=== PATIENT | female | born 1990 | race Two or more races ===

== ENCOUNTER 2017-01-27 13:20 | Emergency (ER) | payer SELFPAY ==
[2017-01-27] MEDS ORDERED: Alum Hydrox/Mag Hydrox/Simeth 15 ML, Lidocaine 2% 5 ML PO ONE ×2 (13:32)
[2017-01-27] MEDS ORDERED: Sodium Chloride 0.9% 1,000 ML IV ONE (13:32)
[2017-01-27] MEDS ORDERED: Ondansetron 4 MG/2 ML SDV IVPUSH ONE (13:32)
[2017-01-27] MEDS ORDERED: Sodium Chloride 0.9% 10 ML Syringe FLUSH PRN (13:32)
[2017-01-27] MEDS ORDERED: Sodium Chloride 0.9% 2.5 ML Syringe FLUSH PRN (13:32)
[2017-01-27] MEDS ORDERED: Ketorolac 30 MG/ML SDV IVPUSH ONE (13:32)
--- NOTE | 2017-01-27 13:36 | EDM.PDOC ---
ED HPI GENERAL MEDICAL PROBLEM - General Chief Complaint: Abdominal Pain Stated Complaint: ABDOMINAL PAIN Time Seen by Provider: 01/27/17 13:30 - History of Present Illness INITIAL COMMENTS - FREE TEXT/NARRATIVE: HISTORY AND PHYSICAL: History of present illness: Patient 26-year-old white female presenting concern of abdominal pain is epigastric and upper abdominal discomfort 3 days she states her is a postprandial component she denies history of ulcer denies melena hematochezia denies denies fever chills shortness of breath or chest pain Review of systems: As per history of present illness and below otherwise all systems reviewed and negative. Past medical history: As per history of present illness and as reviewed below otherwise noncontributory. Surgical history: As per history of present illness and as reviewed below otherwise noncontributory. Social history: No reported history of drug or alcohol abuse. Family history: As per history of present illness and as reviewed below otherwise noncontributory. Physical exam: HEENT: Atraumatic, normocephalic, pupils reactive, negative for conjunctival pallor or scleral icterus, mucous membranes moist, throat clear, neck supple, nontender, trachea midline. Lungs: Clear to auscultation, breath sounds equal bilaterally, chest nontender. Heart: S1S2, regular, negative for clicks, rubs, or JVD. Abdomen: Soft, nondistended, tenderness in the epigastrium and right upper quadrant with deep palpation no rebound no guarding. Negative for masses or hepatosplenomegaly. Negative for costovertebral tenderness. Pelvis: Stable nontender. Genitourinary: Deferred. Rectal: Deferred. Extremities: Atraumatic, negative for cords or calf pain. Neurovascular unremarkable. Neuro: Awake, alert, oriented. Cranial nerves II through XII unremarkable. Cerebellum unremarkable. Motor and sensory unremarkable throughout. Exam nonfocal. Diagnostics: CBC CMP amylase lipase UA hCG right upper quadrant ultrasound Therapeutics: Normal saline 1 L bolus Toradol 30 mg IV Zofran 4 mg IV GI cocktail Impression: #1 upper abdominal pain Definitive disposition and diagnosis as appropriate pending reevaluation and review of above. - Related Data Allergies Allergy/AdvReac Type Severity Reaction Status Date / Time No Known Allergies Allergy Verified 01/27/17 13:29 Home Meds: Home Meds . [No Known Home Meds] 01/27/17 [History] ED ROS GENERAL - Review of Systems Review Of Systems: ROS reveals no pertinent complaints other than HPI. ED EXAM, GENERAL - Physical Exam Exam: See Below (See dictation) Course - Vital Signs Last Recorded V/S: Last Vital Signs Temp 36.3 C 01/27/17 13:30 Pulse 84 01/27/17 13:30 Resp 20 01/27/17 13:30 BP 131/66 01/27/17 13:30 Pulse Ox 98 01/27/17 13:30 - Orders/Labs/Meds Orders: Active Orders 24 hr Category Date Time Status Sodium Chloride 0.9% [Saline Flush] Med 01/27/17 13:32 Active 10 ml FLUSH ASDIRECTED PRN Sodium Chloride 0.9% [Saline Flush] Med 01/27/17 13:32 Active 2.5 ml FLUSH ASDIRECTED PRN Saline Lock Insert [OM.PC] Stat Oth 01/27/17 13:32 Ordered Medication Orders Sodium Chloride (Saline Flush) 10 ml FLUSH ASDIRECTED PRN PRN Reason: Keep Vein Open Sodium Chloride (Saline Flush) 2.5 ml FLUSH ASDIRECTED PRN PRN Reason: Keep Vein Open Labs: Laboratory Tests 01/27/17 01/27/17 01/27/17 Range/Units 14:02 14:02 14:02 WBC 10.32 (4.0-11.0) K/uL RBC 4.65 (4.30-5.90) M/uL Hgb 13.7 (12.0-16.0) g/dL Hct 40.7 (36.0-46.0) % MCV 87.5 (80.0-98.0) fL MCH 29.5 (27.0-32.0) pg MCHC 33.7 (31.0-37.0) g/dL RDW Std Deviation 42.2 (28.0-62.0) fl RDW Coeff of Stephanie 13 (11.0-15.0) % Plt Count 367 (150-400) K/uL MPV 11.40 (7.40-12.00) fL Neut % (Auto) 67.6 (48.0-80.0) % Lymph % (Auto) 23.2 (16.0-40.0) % [place] % (Auto) 7.6 (0.0-15.0) % Eos % (Auto) 1.1 (0.0-7.0) % Baso % (Auto) 0.5 (0.0-1.5) % Neut # (Auto) 7.0 H (1.4-5.7) K/uL Lymph # (Auto) 2.4 (0.6-2.4) K/uL [place] # (Auto) 0.8 (0.0-0.8) K/uL Eos # (Auto) 0.1 (0.0-0.7) K/uL Baso # (Auto) 0.1 (0.0-0.1) K/uL Nucleated RBC % 0.0 /100WBC Nucleated RBCs # 0 K/uL INR 0.95 (0.86-1.11) Sodium 139 (136-146) mmol/L Potassium 4.0 (3.5-5.1) mmol/L Chloride 106 (98-110) mmol/L Carbon Dioxide 23 (21-31) mmol/L BUN 10 (6.0-23.0) mg/dL Creatinine 0.6 (0.6-1.5) mg/dL Est Cr Clr Drug Dosing 113.36 mL/min Estimated GFR (MDRD) > 60.0 ml/min Glucose 90 (60-110) mg/dL Calcium 9.3 (8.8-10.8) mg/dL Total Bilirubin 0.6 (0.1-1.5) mg/dL AST 19 (5-40) IU/L ALT 27 (8-54) IU/L Alkaline Phosphatase 75 (40-150) Total Protein 7.5 (6.0-8.0) g/dL Albumin 4.1 (3.5-5.0) g/dL Globulin 3.4 (2.0-3.5) g/dL Albumin/Globulin Ratio 1.2 L (1.3-2.8) Amylase 58 (10-90) U/L Lipase 11 (7-80) U/L HCG, Qual (NEG) Urine Color Urine Appearance Urine pH (5.0-8.0) Ur Specific [place] (1.001-1.035) Urine Protein (NEGATIVE) mg/dL Urine Glucose (UA) (NEGATIVE) mg/dL Urine Ketones (NEGATIVE) mg/dL Urine Occult Blood (NEGATIVE) Urine Nitrite (NEGATIVE) Urine Bilirubin (NEGATIVE) Urine Urobilinogen (<2.0) EU/dL Ur Leukocyte Esterase (NEGATIVE) Urine RBC (0-2/HPF) Urine WBC (0-5/HPF) Ur Epithelial Cells (NONE-FEW) Amorphous Sediment (NEGATIVE) Urine Bacteria (NEGATIVE) 01/27/17 01/27/17 Range/Units 14:02 14:02 WBC (4.0-11.0) K/uL RBC (4.30-5.90) M/uL Hgb (12.0-16.0) g/dL Hct (36.0-46.0) % MCV (80.0-98.0) fL MCH (27.0-32.0) pg MCHC (31.0-37.0) g/dL RDW Std Deviation (28.0-62.0) fl RDW Coeff of Stephanie (11.0-15.0) % Plt Count (150-400) K/uL MPV (7.40-12.00) fL Neut % (Auto) (48.0-80.0) % Lymph % (Auto) (16.0-40.0) % [place] % (Auto) (0.0-15.0) % Eos % (Auto) (0.0-7.0) % Baso % (Auto) (0.0-1.5) % Neut # (Auto) (1.4-5.7) K/uL Lymph # (Auto) (0.6-2.4) K/uL [place] # (Auto) (0.0-0.8) K/uL Eos # (Auto) (0.0-0.7) K/uL Baso # (Auto) (0.0-0.1) K/uL Nucleated RBC % /100WBC Nucleated RBCs # K/uL INR (0.86-1.11) Sodium (136-146) mmol/L Potassium (3.5-5.1) mmol/L Chloride (98-110) mmol/L Carbon Dioxide (21-31) mmol/L BUN (6.0-23.0) mg/dL Creatinine (0.6-1.5) mg/dL Est Cr Clr Drug Dosing mL/min Estimated GFR (MDRD) ml/min Glucose (60-110) mg/dL Calcium (8.8-10.8) mg/dL Total Bilirubin (0.1-1.5) mg/dL AST (5-40) IU/L ALT (8-54) IU/L Alkaline Phosphatase (40-150) Total Protein (6.0-8.0) g/dL Albumin (3.5-5.0) g/dL Globulin (2.0-3.5) g/dL Albumin/Globulin Ratio (1.3-2.8) Amylase (10-90) U/L Lipase (7-80) U/L HCG, Qual NEGATIVE (NEG) Urine Color YELLOW Urine Appearance SLT CLOUDY Urine pH 6.5 (5.0-8.0) Ur Specific [place] 1.025 (1.001-1.035) Urine Protein NEGATIVE (NEGATIVE) mg/dL Urine Glucose (UA) NEGATIVE (NEGATIVE) mg/dL Urine Ketones NEGATIVE (NEGATIVE) mg/dL Urine Occult Blood NEGATIVE (NEGATIVE) Urine Nitrite NEGATIVE (NEGATIVE) Urine Bilirubin NEGATIVE (NEGATIVE) Urine Urobilinogen 0.2 (<2.0) EU/dL Ur Leukocyte Esterase TRACE (NEGATIVE) Urine RBC NONE SEEN (0-2/HPF) Urine WBC 0-1 (0-5/HPF) Ur Epithelial Cells MODERATE (NONE-FEW) Amorphous Sediment FEW (NEGATIVE) Urine Bacteria FEW (NEGATIVE) Meds: Medications Generic Name Dose Route Start Last Admin Trade Name [place] PRN Reason Stop Dose Admin Sodium Chloride 10 ml 01/27/17 13:32 Saline Flush FLUSH ASDIRECTED PRN Keep Vein Open Sodium Chloride 2.5 ml 01/27/17 13:32 Saline Flush FLUSH ASDIRECTED PRN Keep Vein Open Discontinued Medications Generic Name Dose Route Start Last Admin Trade Name Freq PRN Reason Stop Dose Admin Al Hydroxide/Mg Hydroxide 15 0 ml 01/27/17 13:32 01/27/17 15:04 ml/ Lidocaine HCl 5 ml PO 01/27/17 13:33 20 each ONETIME ONE Administration Sodium Chloride 1,000 mls @ 999 mls/hr 01/27/17 13:32 01/27/17 14:05 Normal Saline IV 01/27/17 14:32 999 mls/hr STAT ONE Administration Ketorolac Tromethamine 30 mg 01/27/17 13:32 01/27/17 15:09 Toradol IVPUSH 01/27/17 13:33 30 mg ONETIME ONE Administration Ondansetron HCl 4 mg 01/27/17 13:32 01/27/17 15:07 Zofran IVPUSH 01/27/17 13:33 4 mg ONETIME ONE Administration Departure - Departure Time of Disposition: 15:46 Disposition: Home, Self-Care 01 Condition: Good Clinical Impression: Abdominal pain - Discharge Information Forms: ED Department Discharge Additional Instructions: The following information is given to patients seen in the emergency department who are being discharged to home. This information is to outline your options for follow-up care. We provide all patients seen in our emergency department with a follow-up referral. The need for follow-up, as well as the timing and circumstances, are variable depending upon the specifics of your emergency department visit. If you don't have a primary care physician on staff, we will provide you with a referral. We always advise you to contact your personal physician following an emergency department visit to inform them of the circumstance of the visit and for follow-up with them and/or the need for any referrals to a consulting specialist. The emergency department will also refer you to a specialist when appropriate. This referral assures that you have the opportunity for followup care with a specialist. All of these measure are taken in an effort to provide you with optimal care, which includes your followup. Under all circumstances we always encourage you to contact your private physician who remains a resource for coordinating your care. When calling for followup care, please make the office aware that this follow-up is from your recent emergency room visit. If for any reason you are refused follow-up, please contact the [facility] emergency department at and asked to speak to the emergency department charge nurse. [facility] [address] [place] [id number] Protonix as prescribed bland diet follow-up primary care doctor and/or clinic above as discussed return as needed as discussed - My Orders Last 24 Hours: My Active Orders 01/27/17 13:32 Sodium Chloride 0.9% [Saline Flush] 10 ml FLUSH ASDIRECTED PRN Sodium Chloride 0.9% [Saline Flush] 2.5 ml FLUSH ASDIRECTED PRN Saline Lock Insert [OM.PC] Stat - Assessment/Plan Last 24 Hours: My Active Orders 01/27/17 13:32 Sodium Chloride 0.9% [Saline Flush] 10 ml FLUSH ASDIRECTED PRN Sodium Chloride 0.9% [Saline Flush] 2.5 ml FLUSH ASDIRECTED PRN Saline Lock Insert [OM.PC] Stat
[2017-01-27 15:03] LABS: CHLORIDE,CL 106 mmol/L (98-110); SODIUM,NA 139 mmol/L (136-146)
--- NOTE | 2017-01-27 15:08 | US ---
EXAMINATION: Right upper quadrant ultrasound HISTORY: Pain COMPARISON: None TECHNIQUE: Grayscale and color Doppler images obtained of the right upper quadrant. FINDINGS: The visualized pancreas appears normal. The liver is moderately increased in generalized e chotexture without a focal hepatic mass. The gallbladder wall thickness is normal. No pericholecysti c fluid or shadowing gallstones. Common bile duct measures 4 mm. The right kidney measures 11.4 cm p ole-to-pole without evidence of hydronephrosis. Sonographic Azar sign is negative. IMPRESSION: 1. Moderate fatty infiltration of liver, otherwise unremarkable right upper quadrant.
[2017-01-27 16:11] VITALS: BP 123/67
== END 2017-01-27 16:01 | disposition home or self-care (01) ==
LOC: MW.ED 13:20
DX: R10.13 Epigastric pain (principal); R10.10 Upper abdominal pain, unspecified
CPT/HCPCS: 36415; 76705; 80053; 81001; 82150; 83690; 84703; 85025; 85610; 96361; 96374; 96375; 99284; A9270; J1885; J2405; J7040; 99283

== ENCOUNTER 2017-04-25 20:49 | Emergency (ER) | payer SELFPAY ==
--- NOTE | 2017-04-25 21:15 | EDM.PDOC ---
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 The patient says she has no ALGEBRA TUTOR history and has never had STDs in the past and has no abdominal surgeries. Patient's last sexual intercourse was 2 days ago and she has no urinary complaints such as frequency urgency dysuria or flank pain. She has no nausea or vomiting no fevers or upper respiratory tract infections. Patient has not used a pad with this spotting and only sees it when she wipes with toilet paper. It is brown in color. She states that the pain is crampy and diffuse not localize right or left in the lower abdomen/pelvic area. She says that she has been trying to drink a lot of fluids and she has been eating regularly. Patient has an appointment this week with an OB Vinny and Jc for her first visit Review of systems: As per history of present illness and below otherwise all systems reviewed and negative. Past medical history: As per history of present illness and as reviewed below otherwise noncontributory. Surgical history: As per history of present illness and as reviewed below otherwise noncontributory. Social history: No reported history of drug or alcohol abuse. Family history: As per history of present illness and as reviewed below otherwise noncontributory. Physical exam: Gen.: Well-developed well-nourished female who is overweight and vital signs have been reviewed by me HEENT: Atraumatic, normocephalic, negative for conjunctival pallor or scleral icterus, mucous membranes moist, throat clear, neck supple, nontender, trachea midline. Lungs: Clear to auscultation, breath sounds equal bilaterally, chest nontender. Heart: S1S2, regular rate and rhythm no overt murmurs. Abdomen: Soft, nondistended, minimally tender in the lower abdominal area on palpation without rebound or guarding and it is diffuse not localize right or left. Bowel sounds are normoactive Negative for masses or hepatosplenomegaly. Negative for costovertebral tenderness. Pelvis: Stable nontender. Genitourinary: Deferred. Rectal: Deferred. Extremities: Atraumatic, negative for cords or calf pain. Neurovascular unremarkable. Neuro: Awake, alert, oriented. Cranial nerves II through XII unremarkable. Cerebellum unremarkable. Motor and sensory unremarkable throughout. Exam nonfocal. Diagnostics: CBC serum quantitative hCG ABO Rh UA urine culture if indicated pelvic ultrasound Therapeutics: All testing results were discussed with the patient including the O+ blood type with stable hemoglobin quantitative beta of 3592 and the ultrasound demonstrating a tree uterine sac. I discussed with the patient that this still is tenuous and needs to be followed closely and she needs to have a repeat quantitative beta with her provider this week when she goes to see him and [place]. The patient has signs of a slight UTI so I will send a urine culture and I will give her Keflex. Advised on strict pelvic rest hydration and reasons to return to the ER. Impression: Threatened , early UTI Definitive disposition and diagnosis as appropriate pending reevaluation and review of above. Lower Abdomen Pain Score (Numeric/FACES): 8 - Related Data Allergies Allergy/AdvReac Type Severity Reaction Status Date / Time No Known Allergies Allergy Verified 04/25/17 20:59 Home Meds: Home Meds . [No Known Home Meds] 01/27/17 [History] Past Medical History - Past Health History Medical/Surgical History: Denies Medical/Surgical History Social & Family History - Family History Family Medical History: Noncontributory - Tobacco Use Smoking Status *Q: Never Smoker Second Hand Smoke Exposure: No - Caffeine Use Caffeine Use: Reports: Soda - Recreational Drug Use Recreational Drug Use: No ED ROS GENERAL - Review of Systems Review Of Systems: ROS reveals no pertinent complaints other than HPI. ED EXAM, GENERAL - Physical Exam Exam: See Below (See dictation) Course - Vital Signs Last Recorded V/S: Last Vital Signs Temp 37.2 C 04/25/17 20:59 Pulse 83 04/25/17 20:59 Resp 18 04/25/17 20:59 BP 147/70 H 04/25/17 20:59 Pulse Ox 98 04/25/17 20:59 - Orders/Labs/Meds Orders: Active Orders 24 hr Category Date Time Status OB 1st Tri Sgl 1st Gest [US] Stat Exams 04/25/17 21:11 Taken CULTURE URINE [RM] Stat Lab 04/25/17 21:03 Received Labs: Laboratory Tests 04/25/17 04/25/17 04/25/17 Range/Units 21:03 21:17 21:17 WBC 8.96 (4.0-11.0) K/uL RBC 4.48 (4.30-5.90) M/uL Hgb 13.3 (12.0-16.0) g/dL Hct 39.6 (36.0-46.0) % MCV 88.4 (80.0-98.0) fL MCH 29.7 (27.0-32.0) pg MCHC 33.6 (31.0-37.0) g/dL RDW Std Deviation 42.8 (28.0-62.0) fl RDW Coeff of Stephanie 13 (11.0-15.0) % Plt Count 339 (150-400) K/uL MPV 10.90 (7.40-12.00) fL Neut % (Auto) 59.6 (48.0-80.0) % Lymph % (Auto) 29.5 (16.0-40.0) % [place] % (Auto) 8.6 (0.0-15.0) % Eos % (Auto) 1.7 (0.0-7.0) % Baso % (Auto) 0.6 (0.0-1.5) % Neut # (Auto) 5.4 (1.4-5.7) K/uL Lymph # (Auto) 2.6 H (0.6-2.4) K/uL [place] # (Auto) 0.8 (0.0-0.8) K/uL Eos # (Auto) 0.2 (0.0-0.7) K/uL Baso # (Auto) 0.1 (0.0-0.1) K/uL Nucleated RBC % 0.0 /100WBC Nucleated RBCs # 0 K/uL HCG, Quant 3592.1 mIU/mL Urine Color YELLOW Urine Appearance SLT CLOUDY Urine pH 6.5 (5.0-8.0) Ur Specific [place] 1.010 (1.001-1.035) Urine Protein NEGATIVE (NEGATIVE) mg/dL Urine Glucose (UA) NEGATIVE (NEGATIVE) mg/dL Urine Ketones NEGATIVE (NEGATIVE) mg/dL Urine Occult Blood LARGE H (NEGATIVE) Urine Nitrite NEGATIVE (NEGATIVE) Urine Bilirubin NEGATIVE (NEGATIVE) Urine Urobilinogen 0.2 (<2.0) EU/dL Ur Leukocyte Esterase MODERATE (NEGATIVE) Urine RBC 0-2 (0-2/HPF) Urine WBC 3-5 (0-5/HPF) Ur Epithelial Cells MODERATE (NONE-FEW) Urine Bacteria FEW (NEGATIVE) Blood Type 04/25/17 Range/Units 21:17 WBC (4.0-11.0) K/uL RBC (4.30-5.90) M/uL Hgb (12.0-16.0) g/dL Hct (36.0-46.0) % MCV (80.0-98.0) fL MCH (27.0-32.0) pg MCHC (31.0-37.0) g/dL RDW Std Deviation (28.0-62.0) fl RDW Coeff of Stephanie (11.0-15.0) % Plt Count (150-400) K/uL MPV (7.40-12.00) fL Neut % (Auto) (48.0-80.0) % Lymph % (Auto) (16.0-40.0) % [place] % (Auto) (0.0-15.0) % Eos % (Auto) (0.0-7.0) % Baso % (Auto) (0.0-1.5) % Neut # (Auto) (1.4-5.7) K/uL Lymph # (Auto) (0.6-2.4) K/uL [place] # (Auto) (0.0-0.8) K/uL Eos # (Auto) (0.0-0.7) K/uL Baso # (Auto) (0.0-0.1) K/uL Nucleated RBC % /100WBC Nucleated RBCs # K/uL HCG, Quant mIU/mL Urine Color Urine Appearance Urine pH (5.0-8.0) Ur Specific [place] (1.001-1.035) Urine Protein (NEGATIVE) mg/dL Urine Glucose (UA) (NEGATIVE) mg/dL Urine Ketones (NEGATIVE) mg/dL Urine Occult Blood (NEGATIVE) Urine Nitrite (NEGATIVE) Urine Bilirubin (NEGATIVE) Urine Urobilinogen (<2.0) EU/dL Ur Leukocyte Esterase (NEGATIVE) Urine RBC (0-2/HPF) Urine WBC (0-5/HPF) Ur Epithelial Cells (NONE-FEW) Urine Bacteria (NEGATIVE) Blood Type O POSITIVE Departure - Departure Time of Disposition: 22:36 Disposition: Home, Self-Care 01 Condition: Good Clinical Impression: Threatened Urinary tract infection Qualifiers: Urinary tract infection type: site unspecified Hematuria presence: without hematuria Qualified Code(s): N39.0 - Urinary tract infection, site not specified - Discharge Information Referrals: PCP,None [Primary Care Provider] - Forms: ED Department Discharge Additional Instructions: The following information is given to patients seen in the emergency department who are being discharged to home. This information is to outline your options for follow-up care. We provide all patients seen in our emergency department with a follow-up referral. The need for follow-up, as well as the timing and circumstances, are variable depending upon the specifics of your emergency department visit. If you don't have a primary care physician on staff, we will provide you with a referral. We always advise you to contact your personal physician following an emergency department visit to inform them of the circumstance of the visit and for follow-up with them and/or the need for any referrals to a consulting specialist. The emergency department will also refer you to a specialist when appropriate. This referral assures that you have the opportunity for followup care with a specialist. All of these measure are taken in an effort to provide you with optimal care, which includes your followup. Under all circumstances we always encourage you to contact your private physician who remains a resource for coordinating your care. When calling for followup care, please make the office aware that this follow-up is from your recent emergency room visit. If for any reason you are refused follow-up, please contact the [facility] emergency department at and ask to speak to the emergency department charge nurse. [facility] [address] [address] Nothing in vagina, strict pelvic rest, and to you are cleared by-year-old BMD. That includes no sexual intercourse no tampons no douching. Please rest as much as possible and push hydration. Please keep your appointment this week with-year -old CATHY and Jc for call and follow-up with one of our providers this week. You need a repeat serum quantitative hCG in 2 days to follow this and you'll need a repeat ultrasound within the next week. Please return to ER as needed and as discussed - My Orders Last 24 Hours: My Active Orders 04/25/17 21:03 CULTURE URINE [RM] Stat 04/25/17 21:11 OB 1st Tri Sgl 1st Gest [US] Stat - Assessment/Plan Last 24 Hours: My Active Orders 04/25/17 21:03 CULTURE URINE [RM] Stat 04/25/17 21:11 OB 1st Tri Sgl 1st Gest [US] Stat
[2017-04-25 23:36] VITALS: BP 124/65
--- NOTE | 2017-04-26 16:15 | US ---
EXAM DATE: 04/25/17 PATIENT'S AGE: 26 Patient: NELLY ALBARADO Facility: [place], [place] Site . Site : 1990 Study: US OB Pelvis [id number]/[id number] 10:18:22 PM Ordering Physician: Fe cShofield Final Report: INDICATION: Vaginal spotting with pelvic cramping TECHNIQUE: Ultrasound OB pelvis transvaginal. Real time velazquez scale imaging of the pelvis was performed. COMPARISON: None FINDINGS: Sonographic imaging demonstrates a single intrauterine gestational sac measuring 1.4 x 0.7 x 1.1 cm. This yields an average sac diameter of 11 mm and estimated gestational age of 5 weeks, 5 days. A small amount of hypoechoic fluid is present in the uterine cavity which may be due to blood products or perichorionic hemorrhage. No pole or yolk sac is identified. There are no gross abnormalities noted within the embryo at this early state of development. The placenta has not yet developed. The amount of fluid within the sac appears appropriate for gestational age. The cervix is closed. The myometrium appears normal. The ovaries are of normal size. There is a simple cyst present within the left ovary measuring 1.9 cm. No significant ascites noted. IMPRESSION: 1. An intrauterine gestational sac is present with average sac diameter of 11 mm and no yolk sac or pole seen. Followup imaging is recommended to exclude blighted ovum. 2. A small amount of hypoechoic fluid is present in the uterine cavity which may be due to blood products or perichorionic hemorrhage. Dictated by Harinder Lopes MD @ 04/25/2017 10:33:54 PM Dictated by: Harinder Lopes MD @ 04/25/2017 22:34:06 (Electronic Signature) Report Signed by Proxy. BRISA
== END 2017-04-25 23:10 | disposition home or self-care (01) ==
LOC: MW.ED 20:49
DX: O20.0 Threatened abortion (principal); O23.41 Unspecified infection of urinary tract in pregnancy, first trimester; Z3A.01 Less than 8 weeks gestation of pregnancy
CPT/HCPCS: 36415; 76801; 76801-26; 81001; 84702; 85025; 86900; 86901; 87086; 99283; 99284-25

== ENCOUNTER 2017-04-27 04:13 | Emergency (ER) | payer SELFPAY ==
--- NOTE | 2017-04-27 05:31 | EDM.PDOC ---
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 Past medical history: As per history of present illness and as reviewed below otherwise noncontributory. Surgical history: As per history of present illness and as reviewed below otherwise noncontributory. Social history: No reported history of drug or alcohol abuse. Family history: As per history of present illness and as reviewed below otherwise noncontributory. Physical exam: HEENT: Atraumatic, normocephalic, pupils reactive, negative for conjunctival pallor or scleral icterus, mucous membranes moist, throat clear, neck supple, nontender, trachea midline. Lungs: Clear to auscultation, breath sounds equal bilaterally, chest nontender. Heart: S1S2, regular, negative for clicks, rubs, or JVD. Abdomen: Soft, nondistended, nontender. Negative for masses or hepatosplenomegaly. Negative for costovertebral tenderness. Pelvis: Stable nontender. Genitourinary: Deferred. Rectal: Deferred. Extremities: Atraumatic, negative for cords or calf pain. Neurovascular unremarkable. Neuro: Awake, alert, oriented. Cranial nerves II through XII unremarkable. Cerebellum unremarkable. Motor and sensory unremarkable throughout. Exam nonfocal. Diagnostics: CBC quantitative beta Therapeutics: None Impression: #1 first trimester bleeding #2 threatened miscarriage Definitive disposition and diagnosis as appropriate pending reevaluation and review of above. hypogastric Pain Score (Numeric/FACES): 10 - Related Data Allergies Allergy/AdvReac Type Severity Reaction Status Date / Time No Known Allergies Allergy Verified 04/27/17 04:17 Home Meds: Home Meds Cephalexin [Keflex] 500 mg PO QID 04/27/17 [History] Past Medical History - Past Health History Medical/Surgical History: Denies Medical/Surgical History Social & Family History - Family History Family Medical History: Noncontributory - Tobacco Use Smoking Status *Q: Never Smoker Second Hand Smoke Exposure: No - Caffeine Use Caffeine Use: Reports: Soda - Recreational Drug Use Recreational Drug Use: No ED ROS GENERAL - Review of Systems Review Of Systems: ROS reveals no pertinent complaints other than HPI. ED EXAM, GENERAL - Physical Exam Exam: See Below (See dictation) Course - Vital Signs Last Recorded V/S: Last Vital Signs Temp 37.2 C 04/27/17 04:13 Pulse 78 04/27/17 04:13 Resp 18 04/27/17 04:13 BP 125/86 04/27/17 04:13 Pulse Ox 99 04/27/17 04:13 - Orders/Labs/Meds Labs: Laboratory Tests 04/27/17 04/27/17 Range/Units 04:33 04:33 WBC 10.30 (4.0-11.0) K/uL RBC 4.44 (4.30-5.90) M/uL Hgb 13.1 (12.0-16.0) g/dL Hct 39.9 (36.0-46.0) % MCV 89.9 (80.0-98.0) fL MCH 29.5 (27.0-32.0) pg MCHC 32.8 (31.0-37.0) g/dL RDW Std Deviation 43.0 (28.0-62.0) fl RDW Coeff of Stephanie 13 (11.0-15.0) % Plt Count 319 (150-400) K/uL MPV 11.00 (7.40-12.00) fL Neut % (Auto) 65.7 (48.0-80.0) % Lymph % (Auto) 25.5 (16.0-40.0) % [place] % (Auto) 6.8 (0.0-15.0) % Eos % (Auto) 1.5 (0.0-7.0) % Baso % (Auto) 0.5 (0.0-1.5) % Neut # (Auto) 6.8 H (1.4-5.7) K/uL Lymph # (Auto) 2.6 H (0.6-2.4) K/uL [place] # (Auto) 0.7 (0.0-0.8) K/uL Eos # (Auto) 0.2 (0.0-0.7) K/uL Baso # (Auto) 0.1 (0.0-0.1) K/uL Nucleated RBC % 0.0 /100WBC Nucleated RBCs # 0 K/uL HCG, Quant 2478.1 mIU/mL Departure - Departure Time of Disposition: 05:30 Disposition: Home, Self-Care 01 Condition: Good Clinical Impression: Threatened - Discharge Information Referrals: PCP,None [Primary Care Provider] - Additional Instructions: The following information is given to patients seen in the emergency department who are being discharged to home. This information is to outline your options for follow-up care. We provide all patients seen in our emergency department with a follow-up referral. The need for follow-up, as well as the timing and circumstances, are variable depending upon the specifics of your emergency department visit. If you don't have a primary care physician on staff, we will provide you with a referral. We always advise you to contact your personal physician following an emergency department visit to inform them of the circumstance of the visit and for follow-up with them and/or the need for any referrals to a consulting specialist. The emergency department will also refer you to a specialist when appropriate. This referral assures that you have the opportunity for followup care with a specialist. All of these measure are taken in an effort to provide you with optimal care, which includes your followup. Under all circumstances we always encourage you to contact your private physician who remains a resource for coordinating your care. When calling for followup care, please make the office aware that this follow-up is from your recent emergency room visit. If for any reason you are refused follow-up, please contact the [facility] emergency department at and asked to speak to the emergency department charge nurse. Continue vaginal rest as discussed follow-up FINANCIAL ACCOUNTANT for 2 days return as needed as discussed
[2017-04-27 05:44] VITALS: BP 130/80
== END 2017-04-27 05:40 | disposition home or self-care (01) ==
LOC: MW.ED 04:13
DX: O20.0 Threatened abortion (principal); Z3A.01 Less than 8 weeks gestation of pregnancy
CPT/HCPCS: 36415; 84702; 85025; 99282; 99284

== ENCOUNTER 2017-10-02 11:05 | Emergency (ER) | payer SELFPAY ==
--- NOTE | 2017-10-02 11:49 | EDM.PDOC ---
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 I'd seen this patient back mid-April with a which she says that she miscarried and then got again soon thereafter. This has been uneventful with no vomiting no bleeding and no abdominal pain and she is following with an INDUSTRIAL MECHANIC M.D. in [place]. The patient states she did have an office ultrasound which documented an IUP and heart tones. She currently is denying any abdominal pain and says that the episode of bleeding occurred when she got up and went to the bathroom and finished urinating she saw a small amount of bright blood on the toilet paper without tissue or clots. The patient has not had any bleeding since. When she woke up this morning there was no blood in her underwear. The patient says she has not had sexual intercourse for about 1 week. She is here because she is very nervous about this due to her loss earlier this year. Review of systems: As per history of present illness and below otherwise all systems reviewed and negative. Past medical history: As per history of present illness and as reviewed below otherwise noncontributory. Surgical history: As per history of present illness and as reviewed below otherwise noncontributory. Social history: No reported history of drug or alcohol abuse. Family history: As per history of present illness and as reviewed below otherwise noncontributory. Physical exam: General: Well-developed well-nourished overweight female who is nontoxic and vital signs are noted by me. She is tearful on evaluation but consolable and interactive. HEENT: Atraumatic, normocephalic, negative for conjunctival pallor or scleral icterus, mucous membranes moist, throat clear, neck supple, nontender, trachea midline. Lungs: Clear to auscultation, breath sounds equal bilaterally, chest nontender. Heart: S1S2, regular, negative for clicks, rubs, or JVD. Abdomen: Soft, nondistended, nontender. Negative for masses or hepatosplenomegaly. Negative for costovertebral tenderness. Pelvis: Stable nontender. Genitourinary: Deferred. Rectal: Deferred. Extremities: Atraumatic, negative for cords or calf pain. Neurovascular unremarkable. Neuro: Awake, alert, oriented. Cranial nerves II through XII unremarkable. Cerebellum unremarkable. Motor and sensory unremarkable throughout. Exam nonfocal. Diagnostics: CBC serum quantitative hCG pelvic ultrasound UA urine culture Patient had blood typing here in April which is [employer]: Impression: Episode of vaginal bleeding in second trimester stable, UTI Definitive disposition and diagnosis as appropriate pending reevaluation and review of above. - Related Data Allergies Allergy/AdvReac Type Severity Reaction Status Date / Time No Known Allergies Allergy Verified 10/02/17 11:26 Home Meds: Home Meds . [No Known Home Meds] 10/02/17 [History] Past Medical History - Past Health History Medical/Surgical History: Denies Medical/Surgical History - Infectious Disease History Infectious Disease History: Reports: None Social & Family History - Family History Family Medical History: Noncontributory - Tobacco Use Smoking Status *Q: Never Smoker Second Hand Smoke Exposure: No - Caffeine Use Caffeine Use: Reports: Soda - Recreational Drug Use Recreational Drug Use: No ED ROS GENERAL - Review of Systems Review Of Systems: ROS reveals no pertinent complaints other than HPI. ED EXAM, GENERAL - Physical Exam Exam: See Below (See dictation) Course - Vital Signs Last Recorded V/S: Last Vital Signs Temp 35.9 C 10/02/17 11:26 Pulse 79 10/02/17 11:26 Resp 20 10/02/17 11:26 BP 116/72 10/02/17 11:26 Pulse Ox 99 10/02/17 11:26 - Orders/Labs/Meds Orders: Active Orders 24 hr Category Date Time Status OB Ltd 1 or More Fetus [US] Stat Exams 10/02/17 11:43 Taken CULTURE URINE [RM] Stat Lab 10/02/17 11:46 Received UA W/MICROSCOPIC [URIN] Stat Lab 10/02/17 11:46 Ordered Labs: Laboratory Tests 10/02/17 10/02/17 10/02/17 Range/Units 11:46 11:50 11:50 WBC 9.69 (4.0-11.0) K/uL RBC 4.09 L (4.30-5.90) M/uL Hgb 12.2 (12.0-16.0) g/dL Hct 35.5 L (36.0-46.0) % MCV 86.8 (80.0-98.0) fL MCH 29.8 (27.0-32.0) pg MCHC 34.4 (31.0-37.0) g/dL RDW Std Deviation 42.2 (28.0-62.0) fl RDW Coeff of Stephanie 13 (11.0-15.0) % Plt Count 271 (150-400) K/uL MPV 11.20 (7.40-12.00) fL Neut % (Auto) 71.9 (48.0-80.0) % Lymph % (Auto) 19.7 (16.0-40.0) % [place] % (Auto) 7.6 (0.0-15.0) % Eos % (Auto) 0.6 (0.0-7.0) % Baso % (Auto) 0.2 (0.0-1.5) % Neut # (Auto) 7.0 H (1.4-5.7) K/uL Lymph # (Auto) 1.9 (0.6-2.4) K/uL [place] # (Auto) 0.7 (0.0-0.8) K/uL Eos # (Auto) 0.1 (0.0-0.7) K/uL Baso # (Auto) 0.0 (0.0-0.1) K/uL Nucleated RBC % 0.0 /100WBC Nucleated RBCs # 0 K/uL HCG, Quant 72435.0 mIU/mL Urine Color YELLOW Urine Appearance CLEAR Urine pH 6.5 (5.0-8.0) Ur Specific [place] 1.015 (1.001-1.035) Urine Protein NEGATIVE (NEGATIVE) mg/dL Urine Glucose (UA) NEGATIVE (NEGATIVE) mg/dL Urine Ketones NEGATIVE (NEGATIVE) mg/dL Urine Occult Blood MODERATE (NEGATIVE) Urine Nitrite NEGATIVE (NEGATIVE) Urine Bilirubin NEGATIVE (NEGATIVE) Urine Urobilinogen 1.0 (<2.0) EU/dL Ur Leukocyte Esterase SMALL (NEGATIVE) Urine RBC 4-8 (0-2/HPF) Urine WBC 0-2 (0-5/HPF) Ur Epithelial Cells MODERATE (NONE-FEW) Urine Bacteria FEW (NEGATIVE) Urine Mucus LIGHT (NONE-MOD) Departure - Departure Time of Disposition: 13:45 Disposition: Home, Self-Care 01 Condition: Good Clinical Impression: Vaginal bleeding during Urinary tract infection Qualifiers: Urinary tract infection type: site unspecified Hematuria presence: without hematuria Qualified Code(s): N39.0 - Urinary tract infection, site not specified - Discharge Information Referrals: PCP,None [Primary Care Provider] - Forms: ED Department Discharge Additional Instructions: The following information is given to patients seen in the emergency department who are being discharged to home. This information is to outline your options for follow-up care. We provide all patients seen in our emergency department with a follow-up referral. The need for follow-up, as well as the timing and circumstances, are variable depending upon the specifics of your emergency department visit. If you don't have a primary care physician on staff, we will provide you with a referral. We always advise you to contact your personal physician following an emergency department visit to inform them of the circumstance of the visit and for follow-up with them and/or the need for any referrals to a consulting specialist. The emergency department will also refer you to a specialist when appropriate. This referral assures that you have the opportunity for followup care with a specialist. All of these measure are taken in an effort to provide you with optimal care, which includes your followup. Under all circumstances we always encourage you to contact your private physician who remains a resource for coordinating your care. When calling for followup care, please make the office aware that this follow-up is from your recent emergency room visit. If for any reason you are refused follow-up, please contact the [facility] emergency department at and ask to speak to the emergency department charge nurse. [facility] Primary care-Women's Health [address] [address] Nothing in vagina until you are cleared by your OB M.D. in [place]. You may also follow-up with one of our providers if you choose. Push fluids rest and hydrate as much as possible. Use antibiotics as directed and return to ER as needed and as discussed - My Orders Last 24 Hours: My Active Orders 10/02/17 11:43 OB Ltd 1 or More Fetus [US] Stat 10/02/17 11:46 CULTURE URINE [RM] Stat UA W/MICROSCOPIC [URIN] Stat - Assessment/Plan Last 24 Hours: My Active Orders 10/02/17 11:43 OB Ltd 1 or More Fetus [US] Stat 10/02/17 11:46 CULTURE URINE [RM] Stat UA W/MICROSCOPIC [URIN] Stat
[2017-10-02 14:27] VITALS: BP 113/59
--- NOTE | 2017-10-04 13:52 | US ---
EXAM DATE: 10/02/17 PATIENT'S AGE: 27 Patient: NELLY ALBARADO Facility: [place], [place] Site . Site : 1990 Study: US OB Pelvis [id number]/2017 12:54:30 PM Ordering Physician: Fe Schofield Final Report: CLINICAL HISTORY: Vaginal bleeding TECHNIQUE: Real time velazquez scale imaging of the fetus was performed as well as color Doppler and spectral Doppler analysis of the umbilical artery. FINDINGS: Sonographic imaging demonstrates a single living intrauterine gestation. Fetus demonstrates a regular cardiac rate of 158 beats per minute. Fetus has a orientation and lie with spine to the maternal . The placenta lies posterior without evidence of placenta previa. Amniotic fluid volume appears normal. Cervical length 3.9 cm. Trace fluid in the endocervical canal. No perigestational hemorrhage The composite ultrasound gestational age is calculated at 14 weeks 5 days. The estimated weight is 105 grams which lies at the 68th percentile. biometry: BPD: 2.5 cm/14 weeks 2 days 34 percent HC: 9.4 cm/14 weeks 3 days 26 percent AC: 9 cm 15 weeks 2 days 84 percent FL: 1.5 cm 14 weeks 3 days 49 percent IMPRESSION: 1. Single live intrauterine gestation with composite gestational age of 14 weeks 5 days with MARY of 03/28/2018. 2. Placenta located posterior. No perigestional hemorrhage. 3. Cervical length measures 3.9 centimeters. Trace fluid in the endocervical canal. Dictated by Celeste Perez MD @ Oct 02 2017 1:33PM (Electronic Signature) Report Signed by Proxy. MTDD
== END 2017-10-02 14:21 | disposition home or self-care (01) ==
LOC: MW.ED 11:05
DX: O20.9 Hemorrhage in early pregnancy, unspecified (principal); O23.42 Unspecified infection of urinary tract in pregnancy, second trimester; Z3A.14 14 weeks gestation of pregnancy
CPT/HCPCS: 36415; 76815; 76815-26; 81001; 84702; 85025; 87086; 99283; 99284-25

== ENCOUNTER 2019-07-10 23:40 | Emergency (ER) | payer SELFPAY ==
[2019-07-11] MEDS ORDERED: Albuterol/Ipratropium 3.0-0.5 MG/3 ML Neb Soln NEB ONE (00:09)
--- NOTE | 2019-07-11 00:12 | EDM.PDOC ---
ED HPI GENERAL MEDICAL PROBLEM - General Chief Complaint: Respiratory Problem Stated Complaint: COUGHING,HARD TIME BREATHING Time Seen by Provider: 07/10/19 23:59 - History of Present Illness INITIAL COMMENTS - FREE TEXT/NARRATIVE: HISTORY AND PHYSICAL: History of present illness: The patient is a 28-year-old female who has had a 3-day history of cough runny nose and sore throat and was actually in here last evening with her child with similar symptoms but she also had a fever. This patient has not had a fever of belly pain vomiting or diarrhea and she did get her influenza shot this year. Patient does not smoke and denies drug use and says that she had the symptoms last evening when she was here with her child but they seem to have worsened over the last 24 hours. She is now having a spastic cough. She says she is having chest pain with the cough. Review of systems: As per history of present illness and below otherwise all systems reviewed and negative. Past medical history: As per history of present illness and as reviewed below otherwise noncontributory. Surgical history: As per history of present illness and as reviewed below otherwise noncontributory. Social history: No reported history of drug or alcohol abuse. Family history: As per history of present illness and as reviewed below otherwise noncontributory. Physical exam: Well-developed well-nourished female who is having harsh hacking cough on my evaluation and vital signs are noted by me. HEENT: Atraumatic, normocephalic, pupils reactive, negative for conjunctival pallor or scleral icterus, mucous membranes moist, throat clear of exudates but there is some oropharyngeal erythema, uvula is midline, there is no cervical adenopathy or nuchal rigidity, neck supple, nontender, trachea midline. Lungs: Clear to auscultation with an occasional rhonchi but no wheezing stridor or work of breathing, breath sounds equal bilaterally, chest nontender. Heart: S1S2, regular, negative for clicks, rubs, or JVD. Abdomen: Soft, nondistended, nontender. Negative for masses or hepatosplenomegaly. Negative for costovertebral tenderness. Pelvis: Deferred Genitourinary: Deferred. Rectal: Deferred. Extremities: Atraumatic, negative for cords or calf pain. Neurovascular unremarkable. No pedal edema Neuro: Awake, alert, oriented. Cranial nerves II through XII unremarkable. Cerebellum unremarkable. Motor and sensory unremarkable throughout. Exam nonfocal. Diagnostics: EKG chest x-ray influenza rapid strep Therapeutics: DuoNeb prednisone spacer and spacer teaching solu-Medrol IM I discussed with the patient the negative testing results and that we would send her home on a spacer as well as a Ventolin inhaler steroid burst and cough medications all of which I will give her from [facility]. I told her to follow- up with her provider in the clinic and push hydration. Impression: Acute bronchitis Definitive disposition and diagnosis as appropriate pending reevaluation and review of above. chest Pain Score (Numeric/FACES): 6 - Related Data Allergies Allergy/AdvReac Type Severity Reaction Status Date / Time No Known Allergies Allergy Verified 07/10/19 23:55 Home Meds: Home Meds . [No Known Home Meds] 07/10/19 [History] Past Medical History - Past Health History Medical/Surgical History: Denies Medical/Surgical History - Infectious Disease History Infectious Disease History: Reports: None Social & Family History - Family History Family Medical History: Noncontributory - Tobacco Use Smoking Status *Q: Never Smoker Second Hand Smoke Exposure: No - Caffeine Use Caffeine Use: Reports: Soda - Recreational Drug Use Recreational Drug Use: No ED ROS GENERAL - Review of Systems Review Of Systems: Comprehensive ROS is negative, except as noted in HPI. ED EXAM, GENERAL - Physical Exam Exam: See Below (See dictation) Course - Vital Signs Last Recorded V/S: Last Vital Signs Temp 36.8 C 07/10/19 23:53 Pulse 86 07/10/19 23:53 Resp 19 07/10/19 23:53 BP 136/63 07/10/19 23:53 Pulse Ox 99 07/10/19 23:53 - Orders/Labs/Meds Orders: Active Orders 24 hr Category Date Time Status Communication Order [RC] STAT Care 07/11/19 00:09 Active EKG Documentation Completion [RC] STAT Care 07/11/19 00:08 Active RT Aerosol Therapy [RC] ASDIRECTED Care 07/11/19 00:09 Active CULTURE STREP A CONFIRMATION [RM] Stat Lab 07/11/19 00:10 Results STREP SCRN A RAPID W CULT CONF [] Stat Lab 07/11/19 00:10 Results methylPREDNISolone Sod Succ [Solu-MEDROL] Med 07/11/19 00:39 Once 125 mg IM ONETIME ONE Meds: Medications Discontinued Medications Generic Name Dose Route Start Last Admin Trade Name Sarahi PRN Reason Stop Dose Admin Albuterol/Ipratropium 3 ml 07/11/19 00:09 07/11/19 00:22 Duoneb 3.0-0.5 Mg/3 Ml NEB 07/11/19 00:10 3 ml ONETIME ONE Administration Departure - Departure Time of Disposition: 00:40 Disposition: Home, Self-Care 01 Condition: Good Clinical Impression: Acute bronchitis Qualifiers: Bronchitis organism: unspecified organism Qualified Code(s): J20.9 - Acute bronchitis, unspecified - Discharge Information Referrals: PCP,None [Primary Care Provider] - Forms: ED Department Discharge Additional Instructions: The following information is given to patients seen in the emergency department who are being discharged to home. This information is to outline your options for follow-up care. We provide all patients seen in our emergency department with a follow-up referral. The need for follow-up, as well as the timing and circumstances, are variable depending upon the specifics of your emergency department visit. If you don't have a primary care physician on staff, we will provide you with a referral. We always advise you to contact your personal physician following an emergency department visit to inform them of the circumstance of the visit and for follow-up with them and/or the need for any referrals to a consulting specialist. The emergency department will also refer you to a specialist when appropriate. This referral assures that you have the opportunity for followup care with a specialist. All of these measure are taken in an effort to provide you with optimal care, which includes your followup. Under all circumstances we always encourage you to contact your private physician who remains a resource for coordinating your care. When calling for followup care, please make the office aware that this follow-up is from your recent emergency room visit. If for any reason you are refused follow-up, please contact the [facility] emergency department at and ask to speak to the emergency department charge nurse. [facility] Primary care- Internal Medicine and Family [address] [address] Push hydration and use [id number] meds for any fever and discomfort. You have been given a spacer here in the emergency department as well as a prescription for Ventolin inhaler from [facility]. Use 1 to 2 puffs with the spacer every 6 hours for the next 24 hours and then every 6 hours as needed. Please start the prednisone you have been given tomorrow as you have been given a dose today and use cough medicine as you choose but only take it while you are at home as it will make you drowsy and sleepy. Coolmist humidifier at sleep times and try to avoid the extremes of cold or any exposure to any chemicals or fumes as this may trigger your cough. Follow-up in the clinic or provider or 1 of ours and return to ER as needed and as discussed. Sepsis Event Note - Evaluation Sepsis Screening Result: No Definite Risk - Focused Exam Vital Signs: Vital Signs Temp Pulse Resp BP Pulse Ox 07/10/19 23:53 36.8 C 86 19 136/63 99 Date Exam was Performed: 07/11/19 Time Exam was Performed: 00:40 - My Orders Last 24 Hours: My Active Orders 07/11/19 00:08 EKG Documentation Completion [RC] STAT 07/11/19 00:09 Communication Order [RC] STAT RT Aerosol Therapy [RC] ASDIRECTED 07/11/19 00:10 CULTURE STREP A CONFIRMATION [RM] Stat STREP SCRN A RAPID W CULT CONF [RM] Stat 07/11/19 00:39 methylPREDNISolone Sod Succ [Solu-MEDROL] 125 mg IM ONETIME ONE - Assessment/Plan Last 24 Hours: My Active Orders 07/11/19 00:08 EKG Documentation Completion [RC] STAT 07/11/19 00:09 Communication Order [RC] STAT RT Aerosol Therapy [RC] ASDIRECTED 07/11/19 00:10 CULTURE STREP A CONFIRMATION [RM] Stat STREP SCRN A RAPID W CULT CONF [RM] Stat 07/11/19 00:39 methylPREDNISolone Sod Succ [Solu-MEDROL] 125 mg IM ONETIME ONE
--- NOTE | 2019-07-11 00:28 | CR ---
INDICATION: Cough, shortness of breath. TECHNIQUE: Chest radiograph 2 views COMPARISON: None FINDINGS: Mediastinum: The mediastinum is normal in appearance. The heart silhouette is normal in size and morphology. Lung: Both lungs are unremarkable in appearance. No sign of pleural effusion seen. No pneumothorax is identified. Bone and Soft tissue: Unremarkable for age. IMPRESSION: 1. No acute cardiopulmonary disease is seen. Dictated by: Harinder Lopes MD @ 07/11/2019 00:27:20 (Electronically Signed)
[2019-07-11] MEDS ORDERED: methylPREDNISolone Sodium Succinate 125 MG/2 ML SDV IM ONE (00:39)
[2019-07-11 01:01] VITALS: BP 125/65; PULSE 77
== END 2019-07-11 01:00 | disposition home or self-care (01) ==
LOC: MW.ED 23:40
DX: J20.9 Acute bronchitis, unspecified (principal)
CPT/HCPCS: 71046; 87081; 87804; 87880; 93005; 94640; 96372; 99284; J2930; 99283; J7620-GY

== ENCOUNTER 2025-04-07 07:14 | Inpatient (IN) | payer BC, OTHER ==
[2025-04-07] MEDS: Ondansetron 4 MG/2 ML SDV IVPUSH ONE (08:07)
[2025-04-07 08:23] LABS: BASOPHILS ABSOLUTE AUTO 0.04 K/uL (0.00-0.20); BASOPHILS PERCENT AUTO 0.5 % (0.0-1.0); EOSINOPHILS ABSOLUTE AUTO 0.10 K/uL (0.00-0.45); EOSINOPHILS PERCENT AUTO 1.2 % (0.0-6.0); IMMATURE GRAN ABSOLUTE AUTO 0.02 K/uL (0.00-0.05); IMMATURE GRAN PERCENT AUTO 0.2 % (0.0-0.4); LYMPHOCYTES ABSOLUTE AUTO 1.80 K/uL (1.00-4.80); LYMPHOCYTES PERCENT AUTO 21.4 % (24.0-44.0); MEAN PLATELET VOLUME 10.7 fL (9.4-12.3); MONOCYTES ABSOLUTE AUTO 0.51 K/uL (0.00-0.80); MONOCYTES PERCENT AUTO 6.1 % (0.0-8.0); NEUTROPHILS ABSOLUTE AUTO 5.95 K/uL (1.80-7.70); NEUTROPHILS PERCENT AUTO 70.6 % (41.0-71.0); NRBC ABSOLUTE 0.00 K/uL (0.00-0.02); NRBC PERCENT 0.0 /100WBC (0.0-0.2); PLATELET COUNT,PLT 373 K/uL (150-400); RED BLOOD CELL COUNT 4.16 M/uL (4.10-5.30); WHITE BLOOD CELL COUNT,WBC 8.42 K/uL (3.9-11.3)
[2025-04-07] MEDS: Iopamidol 755 Mg/ML 100 ML Bottle IVPUSH ONE (08:25)
[2025-04-07 08:49] LABS: A/G RATIO 0.9 (0.9-1.6); ALANINE AMINOTRANSFERASE,ALT 21.0 IU/L (14-63); ASPARTATE AMNIOTRANSFERASE,AST 16.0 IU/L (15-37); BILIRUBIN TOTAL 0.3 mg/dL (0.2-1.0); BLOOD UREA NITROGEN,BUN 13.0 mg/dL (7.0-18.0); CARBON DIOXIDE,CO2 26.4 mmol/L (21.0-32.0); CHLORIDE,CL 108.0 mmol/L (98-107); CREATININE 0.6 mg/dL (0.6-1.0); EST CRCL DRUG DOSING (CG) 105.48 mL/min; GLUCOSE RANDOM 96.0 mg/dL (74-106); POTASSIUM,K 3.6 mmol/L (3.5-5.1); PROTEIN TOTAL,TP 7.1 g/dL (6.4-8.2); SODIUM,NA 140.0 mmol/L (136-145)
[2025-04-07 08:50] LABS: APPEARANCE,URINE SLT CLOUDY; GLUCOSE,URINE NEGATIVE (NEGATIVE); OCCULT BLOOD,URINE LARGE (NEGATIVE)
[2025-04-07 08:50] LABS: ESTIMATED GFR 121.0 mL/min (>60)
[2025-04-07 08:59] LABS: EPITHELIAL CELLS,URINE RARE (NONE-FEW)
[2025-04-07] MEDS: Pantoprazole 40 MG in Sodium Chloride 0.9% 20 ML IVPUSH ONE (10:00)
[2025-04-07] MEDS: Alum Hydrox/Mag Hydrox/Simeth 15 ML, Lidocaine 2% 5 ML PO ONE (10:01)
[2025-04-07] MEDS ORDERED: Sodium Chloride 0.9% 2.5 ML Syringe FLUSH PRN (16:30)
[2025-04-07] MEDS ORDERED: Sodium Chloride 0.9% 10 ML Syringe FLUSH PRN (16:30)
[2025-04-07] MEDS ORDERED: Ondansetron 4 MG Tab.DIS PO PRN (16:30)
[2025-04-07] MEDS ORDERED: Aluminum Hydroxide/Magnesium Hydroxide/Simethicone Susp 30 ML Cup PO PRN (16:43)
[2025-04-07] MEDS: Sucralfate Suspension 1 GM/10 ML Cup PO SCH (17:50)
[2025-04-07] MEDS ORDERED: Lactated Ringers 1,000 ML IV SCH (19:30)
[2025-04-08 05:36] LABS: BASOPHILS ABSOLUTE AUTO 0.04 K/uL (0.00-0.20); BASOPHILS PERCENT AUTO 0.7 % (0.0-1.0); EOSINOPHILS ABSOLUTE AUTO 0.10 K/uL (0.00-0.45); EOSINOPHILS PERCENT AUTO 1.8 % (0.0-6.0); IMMATURE GRAN ABSOLUTE AUTO 0.02 K/uL (0.00-0.05); IMMATURE GRAN PERCENT AUTO 0.4 % (0.0-0.4); LYMPHOCYTES ABSOLUTE AUTO 1.87 K/uL (1.00-4.80); LYMPHOCYTES PERCENT AUTO 33.3 % (24.0-44.0); MEAN PLATELET VOLUME 9.6 fL (9.4-12.3); MONOCYTES ABSOLUTE AUTO 0.35 K/uL (0.00-0.80); MONOCYTES PERCENT AUTO 6.2 % (0.0-8.0); NEUTROPHILS ABSOLUTE AUTO 3.23 K/uL (1.80-7.70); NEUTROPHILS PERCENT AUTO 57.6 % (41.0-71.0); NRBC ABSOLUTE 0.00 K/uL (0.00-0.02); NRBC PERCENT 0.0 /100WBC (0.0-0.2); PLATELET COUNT,PLT 366 K/uL (150-400); RED BLOOD CELL COUNT 4.33 M/uL (4.10-5.30); WHITE BLOOD CELL COUNT,WBC 5.61 K/uL (3.9-11.3)
[2025-04-08 05:50] LABS: INR 1.04 (0.86-1.11)
[2025-04-08 05:55] LABS: AMPHETAMINES SCREEN, URINE NEGATIVE (CUTOFF=500); BUPRENORPHINE SCREEN,URINE NEGATIVE (CUTOFF=10); METHADONE SCREEN, URINE NEGATIVE (CUTOFF=200); METHAMPHETAMINES SCREEN, URINE NEGATIVE (CUTOFF=500); OXYCODONE SCREEN,URINE NEGATIVE (CUT0FF=100); PCP SCREEN,URINE NEGATIVE (CUTOFF=25); THC SCREEN,URINE 20 NG/ML NEGATIVE (CUTOFF=50)
[2025-04-08 06:06] LABS: A/G RATIO 0.8 (0.9-1.6); ALANINE AMINOTRANSFERASE,ALT 22.0 IU/L (14-63); ASPARTATE AMNIOTRANSFERASE,AST 14.0 IU/L (15-37); BILIRUBIN TOTAL 0.6 mg/dL (0.2-1.0); BLOOD UREA NITROGEN,BUN 10.0 mg/dL (7.0-18.0); CARBON DIOXIDE,CO2 29.6 mmol/L (21.0-32.0); CHLORIDE,CL 104.0 mmol/L (98-107); CREATININE 0.6 mg/dL (0.6-1.0); EST CRCL DRUG DOSING (CG) 105.48 mL/min; GLUCOSE RANDOM 93.0 mg/dL (74-106); PHOSPHORUS 3.9 mg/dL (2.6-4.7); POTASSIUM,K 3.9 mmol/L (3.5-5.1); PROTEIN TOTAL,TP 7.3 g/dL (6.4-8.2); SODIUM,NA 139.0 mmol/L (136-145)
[2025-04-08 06:09] LABS: ESTIMATED GFR 121.0 mL/min (>60)
[2025-04-08 06:12] LABS: IRON,FE 16.0 ug/dL (50-175); PERCENT FE SATURATION 3.79 % (20-55)
[2025-04-08] MEDS: Sodium Ferric Gluconate Cmplex 125 MG in Sodium Chloride 0.9% 100 ML IV ONE (10:11)
[2025-04-08 14:03] VITALS: BP 103/54; PULSE 77
== END 2025-04-08 12:00 | disposition home or self-care (01) | DRG 241 ==
LOC: MW.ED 07:14 → MW.MS 16:13 → UNDOADMIN 17:02 → MW.MS 17:02
PROVIDERS: ADMIT Family Medicine; ATTEND Family Medicine
DX: K29.70 Gastritis, unspecified, without bleeding (principal); D50.9 Iron deficiency anemia, unspecified; E11.9 Type 2 diabetes mellitus without complications; I10 Essential (primary) hypertension; H54.7 Unspecified visual loss; R79.89 Other specified abnormal findings of blood chemistry; Z79.899 Other long term (current) drug therapy; Z79.891 Long term (current) use of opiate analgesic
CPT/HCPCS: 36415; 71045; 71045-26; 71275; 71275-26; 74177; 74177-26; 76705; 76705-26; 80053; 80305; 81001; 83550; 83690; 83735; 84100; 84484; 84702; 85014; 85018; 85025; 85379; 85610; 86140; 93005; 93010; 96374; 96375; 96376; 99285; 99285-25; A9270-GY; J1171; J2405; J2470; J2916; Q9967